=== PATIENT | male | born 1950 | race Caucasian/White ===

== ENCOUNTER 2016-12-16 04:07 | Emergency (ER) | payer OTHER, MEDICARE ==
[~2016-12-16] VITALS: Ht 177.8 cm; Wt 107.7 kg
[~2016-12-16 04:07] MED LIST: ADVAIR 250-501 EACH IH; ADVAIR 250/501 DISK IH; ALEVE220 M2 PO; ALEVE220 MG PO; ASPIR 8181 MG PO; ASPIRIN EC325 MG; ASPIRIN EC325 MG PO; CENTRUM SILVER1 EACH PO; COLACE100 MG PO; CRESTOR10 MG PO; DILTIAZEM 24HR120 MG PO; DIOVAN HCT 11 TABLET PO; DIOVAN HCT 1601 EACH PO; DOXYCYCLINE HY100 MG PO; FLEXERIL10 MG PO; FLORASTOR250 MG PO; GLUCOSAMINE &1 EAC1 PO; HYDROCODON-ACE1 EACH PO; INDOCIN25 MG PO; LIPITOR40 MG PO; LOW DOSE ASPIRI81 M2 PO; MECLIZINE HCL25 MG PO; METOPROLOL TART25 MG; METOPROLOL TART25 MG PO; MULTIVITAMIN1 EAC2 PO; NASONEX17 GM BOTH NARES; NASONEX17 GM NS; OMEPRAZOLE20 MG PO; OSTEO BI-FLEX1 EAC2 PO; PRILOSEC OTC20 MG PO; PRILOSEC10 MG PO; PROPOXYPHEN-AP1 EAC2 PO; PROTONIX40 MG; ROBAXIN750 MG PO; TRAMADOL HCL1 GM MC; ULORIC40 MG PO; ZANTAC150 MG; ZOFRAN ODT8 MG PO
[2016-12-16 04:43] LABS: BASOPHIL COUNT 0.1 K/uL (0-0.1); EOSINOPHIL (%) 4.5 % (0-5); EOSINOPHIL COUNT 0.4 K/uL (0-0.3); IMMATURE GRANULOCYTE (%) 0.2 % (0.0-0.7); IMMATURE GRANULOCYTE COUNT 0.2 K/uL; LYMPHOCYTE COUNT 1.1 K/uL (1.0-2.8); MCHC 35.4 G/DL (30.0-36.0); MCV 87.6 FL (86-99); MEAN PLAT.VOLUME 9.4 uM^3 (9.0-12.4); MONOCYTE (%) 14.5 % (3-12); MONOCYTE COUNT 1.3 K/uL (0-0.8); NEUTROPHIL (%) 67.6 % (45-76); PLATELET COUNT 226 K/uL (156-360); RBC DIS.WIDTH-CV 13.6 % (11.8-14.6); RBC DIS.WIDTH-SD 42.9 % (39-53); RED BLOOD COUNT 4.68 M/uL (4.00-5.50); WHITE BLOOD COUNT 8.9 K/uL (4.1-10.2)
[2016-12-16 04:53] LABS: CHLORIDE 107 mEq/L (99-109); POTASSIUM 3.5 mEq/L (3.7-5.4); SODIUM 140 mEq/L (136-147)
[2016-12-16 04:55] LABS: GLUCOSE 135 mg/dL (70-99)
[2016-12-16 04:56] LABS: ANION GAP 14 MEQ/L (2-14)
[2016-12-16 04:57] LABS: TOTAL BILIRUBIN 0.6 mg/dL (0.0-1.0)
[2016-12-16 04:59] LABS: ALKALINE PHOSPHATASE 88 IU/L (3-129); GFR ESTIMATE (CALCULATED) 59 mL/min/
[2016-12-16 05:00] LABS: UREA NITROGEN (BUN) 21 mg/dL (9-23)
[2016-12-16 05:06] LABS: TROP-I INTERPRETATION NEGATIVE; TROPONIN-I < 0.01 ng/mL (0.0-0.30)
[2016-12-16 06:31] LABS: ADD MIUA? NO; BILIRUBIN NEGATIVE; BLOOD NEGATIVE; COLOR YELLOW ((YELLOW)); GLUCOSE (STRIP) NEGATIVE; KETONES 15; LEUKOCYTES NEGATIVE; NITRITE NEGATIVE; PH, URINE 5.5 (5-8); PROTEIN (STRIP) TRACE; SPECIFIC GRAVITY 1.029 (1.000-1.030); UCUL ADDED? NO
[2016-12-16 06:50] LABS: INFLUENZA A VIRAL ANTIGEN NEGATIVE; INFLUENZA B VIRAL ANTIGEN NEGATIVE
[2016-12-16] MEDS ORDERED: ZITHROMAX Z-PA250 MG PO (06:50)
[2016-12-16 07:12] VITALS: BP 110/70
== END 2016-12-16 07:13 | disposition home or self-care (01) ==
LOC: EME 04:07
PROVIDERS: Emergency Medicine
DX: R50.9 Fever, unspecified (principal); R05 Cough; J32.9 Chronic sinusitis, unspecified; I10 Essential (primary) hypertension; E78.5 Hyperlipidemia, unspecified; Z87.442 Personal history of urinary calculi; Z79.82 Long term (current) use of aspirin; Z88.8 Allergy status to other drugs, medicaments and biological substances; Z88.5 Allergy status to narcotic agent
CPT/HCPCS: 71020; 71250; 80053; 81003; 83605; 83880; 84484; 85025; 87040; 87502; 93005; 99281; 99283; J7040